=== PATIENT | female | born 2000 | race African-American/Black ===

== ENCOUNTER 2020-08-06 03:03 | Inpatient (IN) | payer BC, SELFPAY ==
[~2020-08-06] VITALS: Ht 157.5 cm; Wt 43.7 kg
[2020-08-06] MEDS ORDERED: ONDANSETRON 4MG/2ML VIAL IV ONE (03:30)
[2020-08-06] MEDS ORDERED: NS 1,000 ML IV ONE ×2 (03:30→05:15)
[2020-08-06 03:33] LABS: BASO # 0.1 10^3/uL (0.0-0.2); BASO % 0.4 % (0.0-1.0); HEMATOCRIT 43.5 % (36.0-47.0); HEMOGLOBIN 13.5 g/dl (12.0-15.5); LYMPH # 1.5 10^3/uL (1.5-5.0); LYMPH % 9.2 % (24.0-44.0); MEAN CORPUSCULAR VOLUME 93.3 fl (80.0-96.0); MONO # 0.7 10^3/uL (0.0-0.8); MONO % 4.4 % (0.0-5.0); NEUTROPHILS # 13.5 10^3/uL (1.5-8.5); NEUTROPHILS % 85.1 % (36.0-66.0); PLATELET COUNT, AUTOMATED 332 10^3/uL (150-450); RED BLOOD COUNT 4.66 10^6/uL (4.00-5.40); WHITE BLOOD COUNT 15.8 10^3/uL (4.0-10.0)
[2020-08-06] MEDS ORDERED: NOVOINJ3 SC (03:34)
[2020-08-06] MEDS ORDERED: BASA100I SC ×2 (03:34→05:52)
[2020-08-06] MEDS ORDERED: INSULIN REGULAR IN 0.9 % NACL 100 UNIT in IV 1 EA IV SCH ×2 (03:43)
[2020-08-06] MEDS ORDERED: HumuLIN R (REGULAR) INSULIN (NovoLIN R) **100U/ML** PER UNIT IV ONE (03:45)
[2020-08-06] MEDS ORDERED: INSULIN IV RATE CHANGE DOCUMENTATION ML/HR XX SCH (03:45)
--- NOTE | 2020-08-06 05:21 | REPVR ---
PROCEDURE INFORMATION: Exam: XR Chest, 1 View Exam date and time: 08/06/2020 4:55 AM Age: 19 years old Clinical indication: Other: Dka TECHNIQUE: Imaging protocol: XR of the chest Views: 1 view. COMPARISON: No relevant prior studies available. FINDINGS: Lungs: Unremarkable. No consolidation. Pleural space: Unremarkable. No pleural effusion. No pneumothorax. Heart/Mediastinum: Unremarkable. No cardiomegaly. Bones/joints: Unremarkable. IMPRESSION: No acute findings. Electronically signed by: Breanna Palma On 08/06/2020 05:20:34 AM
[2020-08-06] MEDS ORDERED: MOM 30ML SUSPENSION UDC PO PRN (05:45)
[2020-08-06] MEDS ORDERED: INSUH10VL SC (05:52)
[2020-08-06] MEDS ORDERED: NS 1,000 ML IV SCH (05:58)
[2020-08-06] MEDS ORDERED: NS 0.45% 1,000 ML IV SCH (06:28)
--- NOTE | 2020-08-06 06:35 | HPEPDOC ---
[facility] Medical History & Physical Date of Admission Aug 06, 2020 Date of Service: Aug 06, 2020 History and Physical CHIEF COMPLAINT: Nausea and vomiting HISTORY OF PRESENT ILLNESS: 19-year-old female with past medical history of type 1 diabetes presents to the emergency department for nausea and vomiting that started earlier in the day and has progressively gotten worse. Patient was found to be in DKA with blood sugar over 600. Patient was started on an insulin drip in the emergency department and tells me she is feeling better when I saw her in the ED. She tells me her nausea has improved. She denies any other past medical problems and doesn't take any medications other than insulin. She uses NovoLog 15 units with meals and as well as basaglar 30 units at night. Endorses that she ate chicken nuggets from [employer] yesterday after which her symptoms of nausea and vomiting started. She just recently moved to visit her boyfriend here she is from [place]. He does not have a primary care doctor here. PAST MEDICAL HISTORY: Type 1 diabetes PAST SURGICAL HISTORY: None SOCIAL HISTORY: Denies use of illicit drugs. Denies tobacco use. Does not drink alcohol. FAMILY HISTORY: Denies a history of diabetes ALLERGIES: Please see below. REVIEW OF SYSTEMS: Constitutional: No sweating or weight loss she states she has always been thin Eyes: No eye pain or acute blurred vision HENT: No complaints of headache or sore throat Cadiovascular: No Chest pain or palpitations Pulm: Feels that initially her breathing was fast but has improved with time Gastrointestinal: Nausea but no vomiting, no abdominal pain. Genitourinary: No dysuria or hematuria Musculoskeletal: No back pain or joint pain Skin: No rash or jaundice Neurological: Generalized weakness. HOME MEDICATIONS: Please see below. PHYSICAL EXAMINATION: Constitutional: Awake and alert, in no apparent distress answering all questions appropriately. Very skinny. ENT: Sclera are clear. Mucosa is moist. Respiratory: Lungs CTA bilaterally. Mildly tachypneic on exam respiratory rate 20 but able to reply in full sentences. No use of accessory muscles. Cardiovascular: RRR S1 and S2 are normal, no murmur Gastrointestinal: Abdomen is soft, non distended, non tender, BS present. Musculoskeletal: No edema. No joint deformities. RUE 5/5, LUE 5/5, BLE 5/5 Neurologic: No focal neurological deficit. Mental Status: A&O x3, normal affect Skin: Warm, dry LABORATORY DATA: See below. MICROBIOLOGY: Please see below. ASSESSMENT/PLAN 19-year-old female with a past medical history of type 1 diabetes admitted for EKG management. Patient will be admitted to ICU for insulin drip and further monitoring. # DKA: - Type 1 diabetic. Admit to ICU. - Insulin drip. BMP q3h to monitor potassium. Corrected Na ok - monitor. 1/2NS. d51/2NS when glucose reaches 200. - FSBS q1h, BCx, Ucx, A1c, EKG, diabetic education, NPO until n/v improves and able to eat. - pH > 6.9 hold off on bicarb for now - Home insulin dose is NovoLog 15U with meals, basaglar 30U and night # DVT Prophylaxis: lovenox FASTHUG A Yousef Hospitalist Vital Signs Vital Signs Date Time Temp Pulse Resp B/P (MAP) Pulse Ox O2 Delivery O2 Flow Rate FiO2 08/06/20 05:03 144 08/06/20 04:48 22 93 Room Air 08/06/20 03:45 121/85 (97) 08/06/20 03:09 100.1 Laboratory Data Labs 24H Laboratory Tests 2 08/06/20 03:20: Bedside Glucose (Misc Panel) 560*H 08/06/20 03:26: Immature Granulocyte % (Auto) 0.9, Neutrophils (%) (Auto) 85.1H, Lymphocytes (%) (Auto) 9.2L, Monocytes (%) (Auto) 4.4, Eosinophils (%) (Auto) 0.0, Basophils (%) (Auto) 0.4, Neutrophils # (Auto) 13.5H, Lymphocytes # (Auto) 1.5, Monocytes # (Auto) 0.7, Eosinophils # (Auto) 0.0, Basophils # (Auto) 0.1, Nucleated Red Blood Cells % (auto) 0.0 08/06/20 03:33: POC Glucose (Misc Panel) 623*H, POC Sodium (Misc Panel) 135L, POC Potassium (Misc Panel) 4.9, POC Chloride (Misc Panel) 108, POC Total CO2 (Misc Panel) 7.0L, POC Blood Urea Nitrogen (Misc Panel 10, POC Ionized Calcium (Misc Panel) 4.8, POC Creatinine (Misc Panel) 0.6, POC Hematocrit (Misc Panel) 51.0 08/06/20 03:37: POC Beta HCG, Quantitative < 5.0 08/06/20 03:42: POC pH (Misc Panel) 7.029*L, POC Base Excess (Misc Panel) -28.0L, POC Saturated Percent O2 (Misc) 96, POC pO2 (Misc Panel) 119.0H, POC pCO2 (Misc Panel) 9.2*L, POC HCO3 (Misc Panel) 2.4L, POC Total CO2 (Misc Panel) < 5.0L 08/06/20 04:23: Coronavirus (COVID-19)(PCR) NEGATIVE 08/06/20 05:08: Urine Color YELLOW, Urine Appearance CLEAR, Urine pH 6.0, Urine Specific [place] 1.023, Urine Protein 2+H, Urine Glucose (UA) 3+H, Urine Ketones 2+H, Urine Blood 3+H, Urine Nitrite NEGATIVE, Urine Bilirubin NEGATIVE, Urine Urobilinogen 0.2, Urine Leukocyte Esterase NEGATIVE, Urine WBC (Auto) 4H, Urine RBC (Auto) 79H, Urine Hyaline Casts (Auto) 0, Urine Bacteria (Auto) NEGATIVE, Urine Squamous Epithelial Cells 1, Urine Mucus (Auto) SMALL, Urine Sperm (Auto) 08/06/20 05:14: Bedside Glucose (Misc Panel) 455H CBC/BMP Laboratory Tests 08/06/20 03:26 Home Medications Scheduled Insulin Glargine,Hum.rec.anlog (Basaglar Kwikpen U-100) 100 Unit/1 Ml Insuln.pen, 30 UNIT SC QHS Insulin Human Lispro (Novolog) 100 Unit/1 Ml Vial, 1 DOSE SC AC PER SLIDING SCALE Allergies Coded Allergies: No Known Allergies (Unverified , 08/06/20) A-FIB/CHADSVASC A-FIB History Current/History of A-Fib/PAF?: No JOSE RAMON COBOS MD Aug 06, 2020 06:35
[2020-08-06 07:12] LABS: HEMATOCRIT 40.1 % (36.0-47.0); HEMOGLOBIN 13.1 g/dl (12.0-15.5); MEAN CORPUSCULAR HEMOGLOBIN 29.7 pg (27.0-33.0); MEAN CORPUSCULAR HGB CONC 32.7 g/dl (32.0-36.5); MEAN CORPUSCULAR VOLUME 90.9 fl (80.0-96.0); PLATELET COUNT, AUTOMATED 315 10^3/uL (150-450); RED BLOOD COUNT 4.41 10^6/uL (4.00-5.40)
[2020-08-06] MEDS: INSULIN REGULAR IN 0.9 % NACL 100 UNIT in IV 1 EA IV SCH ×4 (08:19→09:27)
[2020-08-06] MEDS: PANTOPRAZOLE 40MG VIAL (C9113 PER 1) IV SCH (08:34)
[2020-08-06] MEDS: ENOXAPARIN 40MG/0.4ML SYRINGE (J1650 PER 10MG) SC SCH (08:34)
--- NOTE | 2020-08-06 08:35 | ECGEPIP ---
[facility] - ED Test Date: 2020-08-06 Pat Name: DAVID CALVILLO Department: Room: [place] [address] Gender: Female Director Video: paul : [id number] Requested By: Ruddy Cosme Order Number: [id number] Reading MD: Clemencia Coates Measurements Intervals Gordon Rate: 136 P: 76 AR: 116 QRS: 97 QRSD: 80 T: 39 QT: 285 QTc: 429 Interpretive Statements SINUS TACHYCARDIA WITH SHORT AR INTERVAL BORDERLINE RIGHT AXIS DEVIATION NONSPECIFIC T-WAVE ABNORMALITY ABNORMAL RHYTHM ECG NO PRIOR Electronically Signed on 08-06-2020 8:35:05 EDT by Clemencia Coates
[2020-08-06 09:02] LABS: ALBUMIN 3.7 GM/DL (3.2-5.2); ALT/SGPT 27 U/L (12-78); BILIRUBIN,TOTAL 0.3 MG/DL (0.2-1.0); BLOOD UREA NITROGEN 8 MG/DL (7-18); CALCIUM LEVEL 8.1 MG/DL (8.5-10.1); CARBON DIOXIDE LEVEL 10 MEQ/L (21-32); CHLORIDE LEVEL 117 MEQ/L (98-107); CREATININE FOR GFR 0.96 MG/DL (0.55-1.30); GLUCOSE, FASTING 164 MG/DL (70-100); MAGNESIUM LEVEL 1.8 MG/DL (1.4-2.0); PHOSPHORUS LEVEL 1.7 MG/DL (2.5-4.9); POTASSIUM SERUM 4.5 MEQ/L (3.5-5.1); SODIUM LEVEL 142 MEQ/L (136-145); TOTAL PROTEIN 7.2 GM/DL (6.4-8.2)
[2020-08-06 09:05] LABS: ALBUMIN 3.6 GM/DL (3.2-5.2); ALT/SGPT 21 U/L (12-78); BILIRUBIN,TOTAL 0.3 MG/DL (0.2-1.0); BLOOD UREA NITROGEN 8 MG/DL (7-18); CARBON DIOXIDE LEVEL 10 MEQ/L (21-32); CHLORIDE LEVEL 116 MEQ/L (98-107); CREATININE FOR GFR 0.89 MG/DL (0.55-1.30); GLUCOSE, FASTING 168 MG/DL (70-100); POTASSIUM SERUM 4.7 MEQ/L (3.5-5.1); SODIUM LEVEL 141 MEQ/L (136-145); TOTAL PROTEIN 7.1 GM/DL (6.4-8.2)
[2020-08-06] MEDS ORDERED: D5W/0.9% SODIUM CHLORIDE 1,000 ML IV SCH (09:15)
[2020-08-06 09:30] VITALS: BP 117/70
[2020-08-06 09:33] LABS: ABG BASE EXCESS -19.6 (-2.0-2.0); ABG HCO3 6.4 MEQ/L (22.0-26.0); ABG O2 SATURATION 98.6 % (95.0-99.0); ABG PARTIAL PRESSURE O2 122.8 mmHg (75.0-100.0); ABG STANDARD HCO3 10.2 MEQ/L (22.0-26.0); ABG TOTAL CO2 6.9 MEQ/L (22.0-29.0)
[2020-08-06 09:34] LABS: ABG PARTIAL PRESSURE CO2 17.1 mmHg (35.0-45.0)
[2020-08-06] MEDS: INSULIN IV RATE CHANGE DOCUMENTATION ML/HR XX SCH ×6 (10:09→15:54)
[2020-08-06] MEDS ORDERED: SODIUM BICARBONATE 50 MEQ in D5W 1,000 ML IV SCH (11:15)
--- NOTE | 2020-08-06 11:40 | IPNPDOC ---
Text Note Date of Service The patient was seen on 08/06/20. NOTE HPI: Ms. Rubio is a 19yo female with a history of type 1 diabetes presented to the ED complaining of nausea and vomiting. SUBJECTIVE: Pt stated that the nausea and vomiting began shortly after eating chicken nuggets from [employer] for lunch yesterday around 1200. She denied any constipation, diarrhea, chest pain, or feeling like her heart is racing. However, she did admit to feeling short of breath. She also complained of feeling very cold and was shaking in the room. She mentioned feeling feverish. The patient denies any chest pain, abdominal pain, nausea/vomiting/diarrhea at this time. OBJECTIVE: VITAL SIGNS: please see below. GENERAL: Pt is lying on the hospital bed with her knees to her chest, shivering, appears stated age, and in NAD. HEENT: NC, AT, no scleral icterus, no pharyngeal erythema. NECK: no JVD or LAD appreciated. CV: Tachycardic with RRR without murmurs, rubs, or gallops. RESPIRATORY: CTAB without wheezes, rales, or rhonchi. ABDOMEN: soft, NT, ND, bowel sounds present in all 4 quadrants. EXTREMITIES: 5/5 strength and sensation intact in all 4 extremities, no LE swelling or edema. PSYCH: normal mood and affect. Slightly confused as to what day it is. LABORATORY: please see below. MICROBIOLOGY: please see below. IMAGING: CXR: Impression No acute findings ASSESSMENT/PLAN: Pt is 19yo female with a history of type 1 diabetes who presented to the ED with complaints of nausea and vomiting, found to have blood glucose over 600 and ketones in her urine, concerning for DKA. # DKA 2/2 Type 1 diabetes: admit to ICU. Etiology of DKA likely noncompliance - Initial findings: BGL 560 / Metabolic acidosis with respiratory compensation 7.029/9.2/119 with AG found to be 31 / Elevated B-hydroxybutyrate - Insulin drip started in ED, s/p NS 1L bolus + 1/2NS 100cc/hr - IV fluids switched to D5w + 1 amp bicarbonate given rising Cl and BGL <200 - BMP Q2hr to monitor potassium, AG - Once AG closes, give initial 20 units of Levemir then continue with 15 units of Levemir BID and after 2 hours dc insulin drip and initiate SSI Q6hrs with hypoglycemic protocol - EKG shows sinus tachycardia - A1c ordered pending results - Patient will likely need Diabetic education and establish with PCP on discharge DVT prophylaxis: Lovenox VS,Fishbone, I+O VS, Fishbone, I+O Laboratory Tests 08/06/20 03:26 08/06/20 07:02 Vital Signs Date Time Temp Pulse Resp B/P (MAP) Pulse Ox O2 Delivery O2 Flow Rate FiO2 08/06/20 08:18 99.3 128 100 08/06/20 08:00 116/72 (87) 08/06/20 06:33 22 Room Air I&O- Last 24 Hours up to 6 AM 08/06/20 06:00 Intake Total 1000 ml Balance 1000 ml GME ATTESTATION GME ATTESTATION My faculty preceptor for this patient encounter was physically present during the encounter and was fully available. All aspects of the patient interview, examination, medical decision making process, and medical care plan development were reviewed and approved by the faculty preceptor. The faculty preceptor is aware and concurs with the plan as stated in the body of this note and will attest to such by his/her cosignature. ATTENDING NOTE Patient was seen and examined by me personally with the residents and the students. Agree with the above assessment and plan. SG SOLIS OMS-3 Aug 06, 2020 09:15 INGRIS BETANCUR MD Aug 06, 2020 12:02 JEANNE MORGAN MD Aug 15, 2020 13:53
[2020-08-06 11:42] LABS: VENOUS BASE EXCESS -17.3 (-2.0-2.0); VENOUS HCO3 8.7 MEQ/L (23.0-27.0); VENOUS O2 SATURATION 99.1 % (60.0-80.0); VENOUS PARTIAL PRESSURE CO2 22.5 mmHg (38.0-50.0); VENOUS PARTIAL PRESSURE O2 158.5 mmHg (30.0-50.0); VENOUS PH 7.207 UNITS (7.330-7.430); VENOUS STANDARD HCO3 11.5 MEQ/L; VENOUS TOTAL CO2 9.4 MEQ/L (24.0-28.0)
[2020-08-06 12:00] VITALS: BP 101/51
[2020-08-06 12:15] LABS: ESTIMATED AVERAGE GLUCOSE 355 MG/DL (60-110); HEMOGLOBIN A1c > 14.0 %
[2020-08-06 12:30] LABS: BLOOD UREA NITROGEN 7 MG/DL (7-18); CARBON DIOXIDE LEVEL 11 MEQ/L (21-32); CHLORIDE LEVEL 116 MEQ/L (98-107); CREATININE FOR GFR 0.83 MG/DL (0.55-1.30); GLUCOSE, FASTING 116 MG/DL (70-100); POTASSIUM SERUM 3.6 MEQ/L (3.5-5.1); SODIUM LEVEL 141 MEQ/L (136-145)
[2020-08-06 13:35] LABS: VENOUS HCO3 8.4 MEQ/L (23.0-27.0); VENOUS O2 SATURATION 99.5 % (60.0-80.0); VENOUS PARTIAL PRESSURE CO2 19.9 mmHg (38.0-50.0); VENOUS PARTIAL PRESSURE O2 197.8 mmHg (30.0-50.0); VENOUS PH 7.241 UNITS (7.330-7.430); VENOUS STANDARD HCO3 11.8 MEQ/L
[2020-08-06 14:18] LABS: BLOOD UREA NITROGEN 8 MG/DL (7-18); CALCIUM LEVEL 8.1 MG/DL (8.5-10.1); CARBON DIOXIDE LEVEL 11 MEQ/L (21-32); CHLORIDE LEVEL 114 MEQ/L (98-107); CREATININE FOR GFR 0.87 MG/DL (0.55-1.30); GLUCOSE, FASTING 158 MG/DL (70-100); POTASSIUM SERUM 3.4 MEQ/L (3.5-5.1); SODIUM LEVEL 138 MEQ/L (136-145)
[2020-08-06] MEDS ORDERED: LEVEMIR (INSULIN DETEMIR) 1 UNITS/0.01ML SC ONE (14:45)
[2020-08-06 15:39] LABS: VENOUS BASE EXCESS -13.8 (-2.0-2.0); VENOUS HCO3 11.8 MEQ/L (23.0-27.0); VENOUS O2 SATURATION 99.3 % (60.0-80.0); VENOUS PARTIAL PRESSURE CO2 27.4 mmHg (38.0-50.0); VENOUS PARTIAL PRESSURE O2 182.2 mmHg (30.0-50.0); VENOUS PH 7.252 UNITS (7.330-7.430); VENOUS STANDARD HCO3 13.9 MEQ/L; VENOUS TOTAL CO2 12.6 MEQ/L (24.0-28.0)
[2020-08-06 15:59] LABS: BLOOD UREA NITROGEN 7 MG/DL (7-18); CALCIUM LEVEL 8.1 MG/DL (8.5-10.1); CARBON DIOXIDE LEVEL 14 MEQ/L (21-32); CHLORIDE LEVEL 113 MEQ/L (98-107); CREATININE FOR GFR 0.81 MG/DL (0.55-1.30); GLUCOSE, FASTING 144 MG/DL (70-100); POTASSIUM SERUM 3.2 MEQ/L (3.5-5.1); SODIUM LEVEL 138 MEQ/L (136-145)
[2020-08-06 16:00] VITALS: BP 98/54
[2020-08-06] MEDS ORDERED: GLUCOSE 4GM CHEW TABLET PO PRN (17:15)
[2020-08-06] MEDS ORDERED: GLUCAGON INJ 1MG VIAL SC PRN (17:15)
[2020-08-06] MEDS ORDERED: DEXTROSE 50% 50 ML SYRINGE IV PRN (17:15)
[2020-08-06] MEDS ORDERED: POTASSIUM CHLORIDE 10 MEQ SR TABLET PO ONE (17:30)
[2020-08-06] MEDS ORDERED: D5W 1,000 ML IV ONE (17:45)
[2020-08-06] MEDS: HumaLOG INSULIN (NovoLOG) PER UNIT SC SCH ×2 (18:00→23:59)
[2020-08-06] MEDS: KCL 10MEQ/100ML SWI (KRUN) 10 MEQ in IV 1 EA IV SCH ×3 (18:12→21:29)
[2020-08-06] MEDS: ACETAMINOPHEN TAB 650MG DOSE (2X325MG) PO PRN (18:15)
[2020-08-06 18:20] LABS: BLOOD UREA NITROGEN 7 MG/DL (7-18); CALCIUM LEVEL 8.4 MG/DL (8.5-10.1); CARBON DIOXIDE LEVEL 17 MEQ/L (21-32); CHLORIDE LEVEL 111 MEQ/L (98-107); CREATININE FOR GFR 0.79 MG/DL (0.55-1.30); GLUCOSE, FASTING 93 MG/DL (70-100); POTASSIUM SERUM 3.1 MEQ/L (3.5-5.1); SODIUM LEVEL 138 MEQ/L (136-145)
[2020-08-06 20:00] VITALS: BP 89/51
[2020-08-06] MEDS: LEVEMIR (INSULIN DETEMIR) 1 UNITS/0.01ML SC SCH (21:33)
[2020-08-06 21:54] LABS: BLOOD UREA NITROGEN 9 MG/DL (7-18); CALCIUM LEVEL 7.8 MG/DL (8.5-10.1); CARBON DIOXIDE LEVEL 14 MEQ/L (21-32); CHLORIDE LEVEL 108 MEQ/L (98-107); CREATININE FOR GFR 0.93 MG/DL (0.55-1.30); GLUCOSE, FASTING 295 MG/DL (70-100); POTASSIUM SERUM 4.4 MEQ/L (3.5-5.1); SODIUM LEVEL 135 MEQ/L (136-145)
[2020-08-06 22:49] LABS: OSMOLALITY SERUM 305 MOSM/KG (275-295)
[2020-08-07] VITALS: BP 106/66
[2020-08-07 03:03] LABS: BLOOD UREA NITROGEN 9 MG/DL (7-18); CALCIUM LEVEL 7.9 MG/DL (8.5-10.1); CARBON DIOXIDE LEVEL 20 MEQ/L (21-32); CHLORIDE LEVEL 109 MEQ/L (98-107); GLUCOSE, FASTING 123 MG/DL (70-100); POTASSIUM SERUM 3.4 MEQ/L (3.5-5.1); SODIUM LEVEL 137 MEQ/L (136-145)
[2020-08-07 04:00] VITALS: BP 95/53
[2020-08-07 06:26] LABS: HEMOGLOBIN 11.7 g/dl (12.0-15.5); MEAN CORPUSCULAR HEMOGLOBIN 29.3 pg (27.0-33.0); MEAN CORPUSCULAR HGB CONC 33.4 g/dl (32.0-36.5); MEAN CORPUSCULAR VOLUME 87.7 fl (80.0-96.0); PLATELET COUNT, AUTOMATED 236 10^3/uL (150-450); RED BLOOD COUNT 3.99 10^6/uL (4.00-5.40); WHITE BLOOD COUNT 6.5 10^3/uL (4.0-10.0)
[2020-08-07 06:28] LABS: BLOOD UREA NITROGEN 8 MG/DL (7-18); CALCIUM LEVEL 8.3 MG/DL (8.5-10.1); CARBON DIOXIDE LEVEL 20 MEQ/L (21-32); CHLORIDE LEVEL 109 MEQ/L (98-107); CREATININE FOR GFR 0.62 MG/DL (0.55-1.30); GLUCOSE, FASTING 76 MG/DL (70-100); POTASSIUM SERUM 2.8 MEQ/L (3.5-5.1); SODIUM LEVEL 137 MEQ/L (136-145)
[2020-08-07] MEDS ORDERED: POTASSIUM CHLORIDE 10 MEQ SR TABLET PO ONE (06:34)
[2020-08-07] MEDS ORDERED: POTASSIUM CHLORIDE 10 MEQ SR TABLET PO SCH (06:45)
[2020-08-07 06:55] LABS: MAGNESIUM LEVEL 1.7 MG/DL (1.4-2.0)
[2020-08-07] MEDS: HumaLOG INSULIN (NovoLOG) PER UNIT SC SCH ×3 (07:30→17:09)
[2020-08-07 08:00] VITALS: BP 101/66
[2020-08-07] MEDS: ACETAMINOPHEN TAB 650MG DOSE (2X325MG) PO PRN (08:08)
[2020-08-07] MEDS: MAG SULF 1GM/100ML (MAG RUN) 1 GM in IV 1 EA IV SCH ×3 (08:09→10:16)
[2020-08-07] MEDS: LEVEMIR (INSULIN DETEMIR) 1 UNITS/0.01ML SC SCH (08:53)
[2020-08-07] MEDS: PANTOPRAZOLE 40MG VIAL (C9113 PER 1) IV SCH (08:55)
[2020-08-07] MEDS: ENOXAPARIN 40MG/0.4ML SYRINGE (J1650 PER 10MG) SC SCH (08:55)
[2020-08-07 10:03] LABS: BLOOD UREA NITROGEN 7 MG/DL (7-18); CARBON DIOXIDE LEVEL 20 MEQ/L (21-32); CHLORIDE LEVEL 105 MEQ/L (98-107); CREATININE FOR GFR 0.77 MG/DL (0.55-1.30); GLUCOSE, FASTING 307 MG/DL (70-100); POTASSIUM SERUM 3.6 MEQ/L (3.5-5.1); SODIUM LEVEL 133 MEQ/L (136-145)
[2020-08-07 10:04] LABS: CALCIUM LEVEL 7.9 MG/DL (8.5-10.1)
[2020-08-07] MEDS: KCL 10MEQ/100ML SWI (KRUN) 10 MEQ in IV 1 EA IV SCH ×3 (11:41→16:28)
--- NOTE | 2020-08-07 11:54 | IPNPDOC ---
Date Seen The patient was seen on 08/07/20. Progress Note HPI: Ms. Rubio is a 19yo female with a history of type 1 diabetes presented to the ED complaining of nausea and vomiting. SUBJECTIVE: No acute events overnight. Pt stated that she is no longer feeling short of breath, cold, shivering, or feverish. Pt denied any new episodes of nausea, vomiting, constipation, or diarrhea. OBJECTIVE PHYSICAL EXAMINATION: VITAL SIGNS: Please see below. GENERAL: Pt is lying on hospital bed comfortably, appears stated age, and in NAD. HEENT: NC, AT, no scleral icterus, no pharyngeal erythema. CARDIOVASCULAR: Tachycardic with RRR without murmurs, rubs, or gallops. RESPIRATORY: CTAB without wheezes, rales, or rhonchi. ABDOMINAL: soft, NT, ND, bowels sounds present in all 4 quadrants. EXTREMITIES: 5/5 strength and sensation intact in all 4 extremities, no LE swelling or edema. PSYCHOLOGICAL: normal mood and affect. LABORATORY DATA, IMAGING STUDIES, MICROBIOLOGY: Please see below. DVT prophylaxis: Lovenox ASSESSMENT AND PLAN: Pt is 19yo female with a history of type 1 diabetes who presented to the ED with complaints of nausea and vomiting, found to have blood glucose over 600 and ketones in her urine, concerning for DKA. # Resolved DKA likely 2/2 noncompliance. - Anion Gap is now 8, BGL better controlled, S/p insulin drip, now on home regimen + SSI/hypoglycemic protocol - Transferred patient from ICU to med-surg. - Levemir 15 units BID and SSI AC/HS with hypoglycemic protocol. - Patient will likely need diabetic education and establish with PCP on discharge. VS, I&O, 24H, Z[place]bone Vital Signs/I&O Vital Signs Date Time Temp Pulse Resp B/P (MAP) Pulse Ox O2 Delivery O2 Flow Rate FiO2 08/07/20 08:00 98.4 85 16 101/66 (78) 100 Room Air I&O- Last 24 Hours up to 6 AM 08/07/20 06:00 Intake Total 4368.5 ml Output Total 1500 ml Balance 2868.5 ml Laboratory Data 24H LABS Laboratory Tests 2 08/06/20 12:01: Bedside Glucose (Misc Panel) 144H 08/06/20 13:10: Bedside Glucose (Misc Panel) 151H 08/06/20 13:23: Blood Gas Puncture Site UNKNOWN, Blood Gas Bicarbonate Standard 11.8, Venous Blood pH 7.241L, Venous Blood Partial Pressure CO2 19.9L, Venous Blood Partial Pressure O2 197.8H, Venous Blood Total Carbon Dioxide 9.0L, Venous Blood HCO3 8 .4L, Venous Blood Oxygen Saturation 99.5H, Venous Blood Base Excess -17.0L, Anion Gap 13, Calcium Level 8.1L 08/06/20 14:07: Bedside Glucose (Misc Panel) 130H 08/06/20 15:03: Bedside Glucose (Misc Panel) 125H 08/06/20 15:26: Blood Gas Bicarbonate Standard 13.9, Venous Blood pH 7.252L, Venous Blood Partial Pressure CO2 27.4L, Venous Blood Partial Pressure O2 182.2H, Venous Blood Total Carbon Dioxide 12.6L, Venous Blood HCO3 11.8L, Venous Blood Oxygen Saturation 99.3H, Venous Blood Base Excess -13.8L, Anion Gap 11, Calcium Level 8.1L 08/06/20 15:52: Bedside Glucose (Misc Panel) 163H 08/06/20 16:37: Bedside Glucose (Misc Panel) 154H 08/06/20 17:01: Bedside Glucose (Misc Panel) 115H 08/06/20 17:42: Anion Gap 10, Calcium Level 8.4L 08/06/20 21:11: Anion Gap 13, Calcium Level 7.8L 08/06/20 21:30: Bedside Glucose (Misc Panel) 293H 08/06/20 23:51: Bedside Glucose (Misc Panel) 191H 08/07/20 01:23: Anion Gap 8, Calcium Level 7.9L 08/07/20 05:16: Anion Gap 8, Calcium Level 8.3L, Nucleated Red Blood Cells % (auto) 0.0, Magnesium Level 1.7 08/07/20 08:43: Bedside Glucose (Misc Panel) 232H 08/07/20 09:13: Anion Gap 8, Calcium Level 7.9L 08/07/20 11:33: Bedside Glucose (Misc Panel) 317H CBC/BMP Laboratory Tests 08/06/20 13:23 08/06/20 15:26 08/06/20 17:42 08/06/20 21:11 08/07/20 01:23 08/07/20 05:16 08/07/20 09:13 Microbiology Microbiology 08/06/20 Blood Culture - Preliminary, Resulted No growth after 24 hours . All specim... 08/06/20 Blood Culture - Preliminary, Resulted No growth after 24 hours . All specim... GME ATTESTATION GME ATTESTATION My faculty preceptor for this patient encounter was physically present during the encounter and was fully available. All aspects of the patient interview, examination, medical decision making process, and medical care plan development were reviewed and approved by the faculty preceptor. The faculty preceptor is aware and concurs with the plan as stated in the body of this note and will attest to such by his/her cosignature. ATTENDING NOTE Patient was seen and examined by me personally with the residents and the students. Agree with the above assessment and plan. INGRIS BETANCUR MD Aug 07, 2020 11:54 JEANNE MORGAN MD Aug 15, 2020 13:56
[2020-08-07 14:00] VITALS: BP 102/68
[2020-08-07] MEDS ORDERED: INSUH10VL SC ×2 (16:02→16:16)
[2020-08-07 16:13] LABS: BLOOD UREA NITROGEN 6 MG/DL (7-18); CALCIUM LEVEL 8.2 MG/DL (8.5-10.1); CARBON DIOXIDE LEVEL 24 MEQ/L (21-32); CHLORIDE LEVEL 108 MEQ/L (98-107); CREATININE FOR GFR 0.68 MG/DL (0.55-1.30); GLUCOSE, FASTING 151 MG/DL (70-100); POTASSIUM SERUM 3.9 MEQ/L (3.5-5.1); SODIUM LEVEL 138 MEQ/L (136-145)
[2020-08-07] MEDS ORDERED: POTA10TA17 PO (16:16)
[2020-08-07] MEDS ORDERED: HumaLOG INSULIN (NovoLOG) PER UNIT SC SCH (21:00)
--- NOTE | 2020-09-11 12:42 | DSES ---
DATE OF ADMISSION: 08/06/2020 DATE OF DISCHARGE: 08/07/2020 CHIEF COMPLAINT: Nausea and vomiting. ADMISSION DIAGNOSIS: Acute diabetic ketoacidosis. DISCHARGE DIAGNOSES: 1. Type 1 diabetes. 2. Diabetic ketoacidosis. HISTORY OF PRESENT ILLNESS: This is a 19-year-old female with a past medical history of type 1 diabetes presenting to the emergency department for nausea and vomiting that started earlier in the day and has progressively gotten worse. The patient was found to be in DKA with blood sugar over 600. The patient was started on an insulin drip in the emergency department and tells me she is feeling better. When I saw her in the ED she tells her nausea has improved. She denies any other past medical problems and does not take any medications other than insulin. She uses NovoLog 15 units with meals as well as Basaglar 30 units at night. Endorses that she ate chicken nuggets from [employer] yesterday after which her symptoms of nausea and vomiting started. She just recently moved to visit her boyfriend here and she is from [place]. He does not have a primary care doctor here. HOSPITAL COURSE: The patient was admitted to the ICU for DKA management. Initially she was started on insulin drip and potassium was checked every three hours. The insulin drip was continued as well as one-half normal saline until her glucose reached 200 at which point the fluids were changed to D5 one-half normal saline. The patient did not have need of any bicarb because her pH was greater than 6.9. Her potassium was originally 4.7, dropped down to as low as 2.8 but with replacement came up to 3.9. Her glucose remained stable below 200 and after she started eating, we switched her to sliding scale insulin and kept her on normal saline. By hospital day three, the patients blood glucose had stabilized and all of her labs were within normal limits. It was recommended that she establish care while she is in town with a primary care physician. However, the patient reported that she was going back to [place] shortly after her discharge. Therefore she was discharged home and meds were sent to her pharmacy in [place] for Levemir 15 units twice a day as well as NovoLog sliding scale protocol. The patient was educated on proper insulin dosage and frequent blood sugar checks and she voiced understanding. She was also discharged on potassium 10 mEq daily for four days as her potassium was below 4.0 on the date of discharge. PHYSICAL EXAM ON THE DATE OF DISCHARGE: GENERAL: Patient lying in the hospital bed comfortably, appearing stated age in no acute distress. HEENT exam: Normocephalic, atraumatic. No scleral icterus. No pharyngeal edema. CARDIOVASCULAR: Tachycardic with regular rate and rhythm without murmurs, rubs or gallops. RESPIRATORY: Clear to auscultation bilaterally without wheezes, rales or rhonchi. ABDOMEN: Soft, nontender, nondistended. Bowel sounds present in all four quadrants. EXTREMITIES: 5/5 strength and sensation intact in all four extremities. No lower extremity swelling or edema. PSYCHOLOGIC: Normal mood and affect. Imaging studies that were performed were just a chest x-ray on August 06, 2020 with the read of no acute findings. ITEMS TO FOLLOW UP ON DISCHARGE: None. ITEMS PENDING ON DISCHARGE: None. [facility]
== END 2020-08-07 17:57 | disposition home or self-care (01) | DRG 420 ==
LOC: M ED 03:03 → M ED INP 06:04 → ENRESERV 07:45 → M ICU 09:41
PROVIDERS: ADMIT Family Medicine; ATTEND Internal Medicine
DX: E10.10 Type 1 diabetes mellitus with ketoacidosis without coma (principal); Z79.4 Long term (current) use of insulin